=== PATIENT | female | born 1965 | race Caucasian/White ===

== ENCOUNTER 2019-03-22 17:01 | Emergency (ER) | payer OTHER ==
[~2019-03-22] VITALS: Ht 165.1 cm; Wt 72.6 kg
[2019-03-22 17:27] VITALS: Ht 165.1 cm; Wt 72.6 kg
[2019-03-22 19:48] VITALS: BP 113/69
== END 2019-03-22 19:49 | disposition home or self-care (01) ==
LOC: ED 17:01
DX: S96.911A Strain of unspecified muscle and tendon at ankle and foot level, right foot, initial encounter (principal); S80.01XA Contusion of right knee, initial encounter; A80.9 Acute poliomyelitis, unspecified; W18.30XA Fall on same level, unspecified, initial encounter; Y93.E1 Activity, personal bathing and showering; Y92.89 Other specified places as the place of occurrence of the external cause; Y99.8 Other external cause status
CPT/HCPCS: J1885; Q0162